=== PATIENT | male | born 1955 | race Caucasian/White ===

== ENCOUNTER 2018-07-16 12:04 | Emergency (ER) | payer SELFPAY ==
[~2018-07-16] VITALS: Ht 157.5 cm; Wt 83.0 kg
[2018-07-16 17:49] VITALS: BP 154/87
== END 2018-07-16 17:50 | disposition home or self-care (01) ==
LOC: ER 14:48
DX: G51.0 Bell's palsy (principal)
CPT/HCPCS: 99283